=== PATIENT | male | born 1985 | race Caucasian/White ===

== ENCOUNTER → 2018-07-30 | Outpatient (CLI) | payer BC ==
--- NOTE | 2018-07-30 14:20 | FL ---
EXAMINATION TYPE: FL UGI air w esophagus DATE OF EXAM: 07/30/2018 COMPARISON: NONE HISTORY: Nausea and vomiting TECHNIQUE: A double contrast UGI study is performed. FINDINGS: Beef Farmer image of the abdomen shows no gross abnormality. 17 images are submitted and there i s 1.1 minutes of fluoroscopy time provided. The esophagus shows normal motility and emptying into the stomach. No evidence of hiatal hernia or s tricture noted. The stomach shows normal distensibility, peristalsis, and mucosal folds. No evidence of any mass or ulcer disease. There was mild gastroesophageal reflux was seen during real time performance of this s tudy. The duodenal bulb, sweep, and proximal small bowel loops are unremarkable. IMPRESSION: 1. Mild gastroesophageal reflux. If symptoms persist consider direct visualization.
== END | disposition home or self-care (01) ==
LOC: RADFLWHC 09:27
PROVIDERS: ATTEND Internal Medicine
DX: K21.9 Gastro-esophageal reflux disease without esophagitis (principal)
CPT/HCPCS: 74246